=== PATIENT | male | born 1990 | race Caucasian/White ===

== ENCOUNTER → 2016-11-12 | Outpatient (CLI) | payer BC | END | disposition home or self-care (01) | LOC: MW.RT 20:47 | DX: G47.33 Obstructive sleep apnea (adult) (pediatric) (principal) | CPT/HCPCS: 95811 ==

== ENCOUNTER 2017-04-10 18:55 | Emergency (ER) | payer BC ==
--- NOTE | 2017-04-10 19:13 | EDM.PDOC ---
ED HPI GENERAL MEDICAL PROBLEM - General Chief Complaint: Fever Stated Complaint: SINUS INFECTION Time Seen by Provider: 04/10/17 19:06 Source of Information: Reports: Patient History Limitations: Reports: No Limitations - History of Present Illness INITIAL COMMENTS - FREE TEXT/NARRATIVE: HISTORY AND PHYSICAL: []26-year-old male who was seen in the clinic on Saturday and treated for a sinusitis with amoxicillin He does not seem to be improving History of Present Illness: []Patient has headache is having a cough snoring at night Review of Systems: As per history of present illness and below otherwise all systems reviewed and negative. Past medical history: As per history of present illness and as reviewed below otherwise noncontributory. Surgical history: As per history of present illness and as reviewed below otherwise noncontributory. Social history: No reported history of drug or alcohol abuse. Family history: As per history of present illness and as reviewed below otherwise noncontributory. Physical exam: Alert and oriented gentleman able to speak in full sentences HEENT: Atraumatic, normocehpalic, pupils reactive, negative for conjunctival pallor or scleral icterus, mucous membranes moist, throat with erythema, neck supple, nontender, trachea midline. Tonsils are enlarged white exudate noted to them, anterior cervical adenopathy present, light reflex is reduced to the left frontal sinus area and reduced to the right maxillary area, tympanic membranes bilaterally are dull quality slight bulging on the left Lungs: Wheezing with auscultation, breath sounds equal bilaterally, chest non tender. Heart: S1S2, regular, negative for clicks, rubs, or JVD. Abdomen: Soft, nondistended, nontender. Negative for masses or hepatossplenmegaly. Negative for costovertebral tenderness. Pelvis: Stable nontender. Genitourinary: Deferred. Rectal: Deferred Extremities: Atraumatic, negative for cords or calf pain. Neurovascular unremarkable. Neuro: Awake, alert, oriented. Cranial nerves II through XII unremarkable. Cerebellum unremarkable. Motor and sensory unremarkable throughout. Exam nonfocal. Diagnostics: [] Therapeutics: [Prednisolone syrup ] Impression: [#1 acute exudative tonsillitis #2 bilateral otitis media] #3 sinusitis Plan: Home[] Continue with current medications Medrol Dosepak as directed Definitive disposition and diagnosis as appropriate pending reevaluation and review of above. Onset: Gradual Duration: Day(s):, Getting Worse Location: Reports: Head, Face - Related Data Allergies Allergy/AdvReac Type Severity Reaction Status Date / Time No Known Allergies Allergy Verified 08/30/16 18:57 Home Meds: Home Meds Amoxicillin/Potassium Clav [Amox Tr-K Clv 875-125 mg Tab] 1 each PO BID [History] methylPREDNISolone [Medrol] 4 mg PO ASDIRECTED #1 dosepk 04/10/17 [Rx] Past Medical History HEENT History: Reports: None Cardiovascular History: Reports: High Cholesterol, Hypertension Respiratory History: Reports: None Gastrointestinal History: Reports: None Genitourinary History: Reports: None Musculoskeletal History: Reports: None Neurological History: Reports: None Psychiatric History: Reports: None Endocrine/Metabolic History: Reports: None Hematologic History: Reports: None Immunologic History: Reports: None Oncologic (Cancer) History: Reports: None Dermatologic History: Reports: None - Infectious Disease History Infectious Disease History: Reports: None Social & Family History - Family History Family Medical History: Noncontributory - Tobacco Use Smoking Status *Q: Never Smoker - Caffeine Use Caffeine Use: Reports: Coffee - Recreational Drug Use Recreational Drug Use: No ED ROS ENT - Review of Systems Review Of Systems: ROS reveals no pertinent complaints other than HPI. ED EXAM, ENT - Physical Exam Exam: See Below (See dictation) Course - Vital Signs Last Recorded V/S: Last Vital Signs Temp 37.7 C 04/10/17 19:05 Pulse 120 H 04/10/17 19:05 Resp 20 04/10/17 19:05 BP 135/87 04/10/17 19:05 Pulse Ox 97 04/10/17 19:05 - Orders/Labs/Meds Meds: Medications Discontinued Medications Generic Name Dose Route Start Last Admin Trade Name Freq PRN Reason Stop Dose Admin Ceftriaxone Sodium 1,000 mg/ 4 mls @ 4 mls/sec 04/10/17 19:17 Lidocaine HCl IM 04/10/17 19:18 ONETIME ONE Prednisolone 30 mg 04/10/17 19:16 Orapred 15 Mg/5ml Soln PO 04/10/17 19:17 ONETIME ONE Departure - Departure Time of Disposition: 19:26 Disposition: Home, Self-Care 01 Condition: Good Clinical Impression: Tonsillitis - Discharge Information Prescriptions: methylPREDNISolone [Medrol] 4 mg PO ASDIRECTED #1 dosepk Forms: ED Department Discharge Additional Instructions: The following information is given to patients seen in the emergency department who are being discharged to home. This information is to outline your options for follow-up care. We provide all patients seen in our emergency department with a follow-up referral. The need for follow-up, as well as the timing and circumstances, are variable depending upon the specifics of your emergency department visit. If you don't have a primary care physician on staff, we will provide you with a referral. We always advise you to contact your personal physician following an emergency department visit to inform them of the circumstance of the visit and for follow-up with them and/or the need for any referrals to a consulting specialist. The emergency department will also refer you to a specialist when appropriate. This referral assures that you have the opportunity for followup care with a specialist. All of these measure are taken in an effort to provide you with optimal care, which includes your followup. Under all circumstances we always encourage you to contact your private physician who remains a resource for coordinating your care. When calling for followup care, please make the office aware that this follow-up is from your recent emergency room visit. If for any reason you are refused follow-up, please contact the [facility] emergency department at and asked to speak to the emergency department charge nurse. Prescription for steroids have been electronically sent to [facility]
[2017-04-10] MEDS ORDERED: prednisoLONE Soln 15 MG/5 ML UD Cup PO ONE (19:16)
[2017-04-10] MEDS ORDERED: cefTRIAXone 1,000 MG in Lidocaine 1% 4 ML IM ONE (19:17)
[2017-04-10 20:12] VITALS: BP 145/80
== END 2017-04-10 19:45 | disposition home or self-care (01) ==
LOC: MW.ED 18:55
DX: J03.90 Acute tonsillitis, unspecified (principal); H66.93 Otitis media, unspecified, bilateral; J32.9 Chronic sinusitis, unspecified; I10 Essential (primary) hypertension; E78.00 Pure hypercholesterolemia, unspecified
CPT/HCPCS: 96372; 99282; A9270; J0696; 99283

== ENCOUNTER 2017-04-17 19:06 | Emergency (ER) | payer BC ==
--- NOTE | 2017-04-17 19:57 | EDM.PDOC ---
ED HPI GENERAL MEDICAL PROBLEM - General Chief Complaint: ENT Problem Stated Complaint: PT HAS SINUS INFECTION Time Seen by Provider: 04/17/17 19:44 - History of Present Illness INITIAL COMMENTS - FREE TEXT/NARRATIVE: HISTORY AND PHYSICAL: History of present illness: The patient is a 18-year-old male with no stated medical history who presents with persistent complaints of bilateral ear pain sore throat and fevers that have been ongoing for the last 10-14 days. He was seen in our clinic on April 08 and was placed on amoxicillin for 7 days which she completed. He wasn't feeling much better so he came and saw our ER provider on April 10 and prednisolone was added to his medication regimen. The patient says that he was feeling much improved and went back to work on Saturday and Saturday and then started feeling poorly again this morning. He had a fever today which he treated with Tylenol, last taken at 5 PM. He has been eating and drinking without nausea vomiting or diarrhea and no chest pain or shortness of breath. He has no abdominal pain and no pre-existing ENT or pulmonary problems. Review of systems: As per history of present illness and below otherwise all systems reviewed and negative. Past medical history: As per history of present illness and as reviewed below otherwise noncontributory. Surgical history: As per history of present illness and as reviewed below otherwise noncontributory. Social history: No reported history of drug or alcohol abuse. Family history: As per history of present illness and as reviewed below otherwise noncontributory. Physical exam: Gen.: Well-developed well-nourished man who is nontoxic and speaking without hoarse or muffled voice. His repeat temperature my evaluation was 100.6. He has some flushing to his face. HEENT: Atraumatic, normocephalic, pupils reactive, negative for conjunctival pallor or scleral icterus, mucous membranes moist, throat clear of exudates and there is only minimal erythema seen on the tonsils, there is some shoddy anterior cervical adenopathy without nuchal rigidity and no posterior cervical adenopathy, neck supple, nontender, trachea midline. TMs are dulled bilaterally in the right is slightly reddened . There is no sinus tenderness appreciated Lungs: Clear to auscultation, breath sounds equal bilaterally, chest nontender. Heart: S1S2, regular rate and rhythm no overt murmurs Abdomen: Soft, nondistended, nontender. NABS Skin: No overt rashes or lesions normal turgor Genitourinary: Deferred. Rectal: Deferred. Extremities: Atraumatic, negative for cords or calf pain. Neurovascular unremarkable. Neuro: Awake, alert, oriented. Cranial nerves II through XII unremarkable. Cerebellum unremarkable. Motor and sensory unremarkable throughout. Exam nonfocal. Diagnostics: [] Therapeutics: Patient was offered Motrin for his fever as he just took Tylenol less than 3 hours ago and he defers and says he will take it at home. I discussed with the patient that he likely needs a longer course of antibiotics and we will set him up to Augmentin. I recommended diligent Motrin and Tylenol use as well as hydration and follow-up in our clinic. Impression: Persistent pharyngitis and right otitis media Definitive disposition and diagnosis as appropriate pending reevaluation and review of above. Bilateral Ears/Throat Pain Score (Numeric/FACES): 7 - Related Data Allergies Allergy/AdvReac Type Severity Reaction Status Date / Time No Known Allergies Allergy Verified 04/17/17 19:17 Home Meds: Home Meds . [No Known Home Meds] 04/17/17 [History] Past Medical History HEENT History: Reports: None Cardiovascular History: Reports: High Cholesterol, Hypertension Respiratory History: Reports: None Gastrointestinal History: Reports: None Genitourinary History: Reports: None Musculoskeletal History: Reports: None Neurological History: Reports: None Psychiatric History: Reports: None Endocrine/Metabolic History: Reports: None Hematologic History: Reports: None Immunologic History: Reports: None Oncologic (Cancer) History: Reports: None Dermatologic History: Reports: None - Infectious Disease History Infectious Disease History: Reports: None Social & Family History - Family History Family Medical History: Noncontributory - Tobacco Use Smoking Status *Q: Never Smoker - Caffeine Use Caffeine Use: Reports: Coffee - Recreational Drug Use Recreational Drug Use: No ED ROS GENERAL - Review of Systems Review Of Systems: ROS reveals no pertinent complaints other than HPI. ED EXAM, GENERAL - Physical Exam Exam: See Below (See dictation) Course - Vital Signs Last Recorded V/S: Last Vital Signs Temp 36.9 C 04/17/17 19:20 Pulse 95 04/17/17 19:20 Resp 18 04/17/17 19:20 BP 133/68 04/17/17 19:20 Pulse Ox 96 04/17/17 19:20 Departure - Departure Time of Disposition: 19:56 Disposition: Home, Self-Care 01 Condition: Good Clinical Impression: Otitis media Qualifiers: Otitis media type: unspecified Chronicity: subacute Pharyngitis Qualifiers: Pharyngitis/tonsillitis etiology: unspecified etiology Qualified Code(s): J02.9 - Acute pharyngitis, unspecified - Discharge Information Forms: ED Department Discharge Additional Instructions: The following information is given to patients seen in the emergency department who are being discharged to home. This information is to outline your options for follow-up care. We provide all patients seen in our emergency department with a follow-up referral. The need for follow-up, as well as the timing and circumstances, are variable depending upon the specifics of your emergency department visit. If you don't have a primary care physician on staff, we will provide you with a referral. We always advise you to contact your personal physician following an emergency department visit to inform them of the circumstance of the visit and for follow-up with them and/or the need for any referrals to a consulting specialist. The emergency department will also refer you to a specialist when appropriate. This referral assures that you have the opportunity for followup care with a specialist. All of these measure are taken in an effort to provide you with optimal care, which includes your followup. Under all circumstances we always encourage you to contact your private physician who remains a resource for coordinating your care. When calling for followup care, please make the office aware that this follow-up is from your recent emergency room visit. If for any reason you are refused follow-up, please contact the [facility] emergency department at and ask to speak to the emergency department charge nurse. [facility] Primary care- Internal Medicine and Family [address] [address] Please call and schedule follow-up appointment in the clinic and return to the ER as needed and as discussed. Push hydration rest and take antibiotics until they're finished. Continue to use Tylenol and Motrin for fevers.
== END 2017-04-17 20:00 | disposition home or self-care (01) ==
LOC: MW.ED 19:06
CPT/HCPCS: 99283

== ENCOUNTER 2017-04-19 13:46 | Inpatient (IN) | payer BC ==
[2017-04-19] MEDS ORDERED: Ondansetron 4 MG/2 ML SDV IVPUSH STA (14:51)
[2017-04-19] MEDS ORDERED: Sodium Chloride 0.9% 1,000 ML IV STA ×2 (14:51→16:05)
[2017-04-19] MEDS ORDERED: Ketorolac 30 MG/ML SDV IVPUSH ONE (14:54)
[2017-04-19 15:47] LABS: CHLORIDE,CL 98 mmol/L (98-110); SODIUM,NA 135 mmol/L (136-146)
[2017-04-19] MEDS ORDERED: cefTRIAXone 1 GM in Premix Bag 1 BAG IV ONE (16:00)
--- NOTE | 2017-04-19 16:00 | EDM.PDOC ---
ED HPI GENERAL MEDICAL PROBLEM - General Chief Complaint: Fever Stated Complaint: fever Time Seen by Provider: 04/19/17 14:48 Source of Information: Reports: Patient History Limitations: Reports: No Limitations - History of Present Illness INITIAL COMMENTS - FREE TEXT/NARRATIVE: HISTORY AND PHYSICAL: History of present illness: [26-year-old male with no significant past history now complaining of fevers and sore throat for a week. Patient states he was seen and diagnosed with sore throat over week ago. He was prescribed amoxicillin he had nausea and vomiting and was unable to keep it down. His symptoms persisted he was seen again and diagnosed with bilateral ear infections. Patient was put on Omnicef however he was unable to keep this medication down. He's had intermittent fevers since that time sometimes quite high. Patient does not have a stiff neck. Denies productive cough or abdominal pain. Patient has normal bladder habits but he does report some loose stool since being on the antibiotics. Patient has nausea and vomiting and because of this is unable to keep down fluids so he feels he is getting dehydrated. On arrival patient has fever of 38 and is tachycardic] Review of systems: As per history of present illness and below otherwise all systems reviewed and negative. Past medical history: As per history of present illness and as reviewed below otherwise noncontributory. Surgical history: As per history of present illness and as reviewed below otherwise noncontributory. Social history: No reported history of drug or alcohol abuse. Family history: As per history of present illness and as reviewed below otherwise noncontributory. Physical exam: HEENT: Atraumatic, normocephalic, pupils reactive, negative for conjunctival pallor or scleral icterus, mucous membranes moist, throat with no swelling or asymmetry but significant bilateral white exudates. Midline uvula normal voice no stridor. No palpable anterior neck mass or swelling, neck supple, nontender, trachea midline. Patient with normal-appearing TMs bilaterally. Lungs: Clear to auscultation, breath sounds equal bilaterally, chest nontender. Heart: S1S2, regular, negative for clicks, rubs, or JVD. Positive tachycardia regular rate and rhythm Abdomen: Soft, nondistended, nontender. Negative for masses or hepatosplenomegaly. Negative for costovertebral tenderness. Pelvis: Stable nontender. Genitourinary: Deferred. Rectal: Deferred. Extremities: Atraumatic, negative for cords or calf pain. Neurovascular unremarkable. Neuro: Awake, alert, oriented. Cranial nerves grossly unremarkable. Cerebellum unremarkable. Motor and sensory unremarkable throughout. Exam nonfocal. Diagnostics: [Rapid strep and throat culture pending] Therapeutics: [IV fluids /Toradol] administered. Zofran and after blood cultures and throat culture, Rocephin given. Impression: [Pharyngitis Fever Tachycardia Dehydration] Plan: [Signs and symptoms consistent with strep pharyngitis with a classic strep appearance of the bilateral tonsillar distribution. No clinical evidence of peritonsillar abscess or findings to suggest deep space neck soft tissue infection. Rapid strep and throat culture performed. Patient has a supple neck and no evidence of meningitis. He is able to swallow and his symptoms do not suggest retropharyngeal abscess. Clear lungs with no murmur and a benign abdomen. Patient is clearly clinically dehydrated secondary to vomiting associated with this illness. IV fluids administered. Will follow labs and clinical status. Blood cultures pending. Given patient's failure of outpatient therapy, significant persistent fevers of unknown cause, elevated white blood cell count with elevated lactate and findings consistent with Sirs and sepsis, will do observation admission to rule out bacteremia and follow for clinical improvement and response to treatment. Discussed with Dr. Christoph Langley hospitalist education courses sales representative who is aware of history and findings and agrees with observation admission to a telemetry bed to his service for further workup and treatment. Chest x-ray with no evidence of pneumonia Definitive disposition and diagnosis as appropriate pending reevaluation and review of above. head; throat Pain Score (Numeric/FACES): 9 - Related Data Allergies Allergy/AdvReac Type Severity Reaction Status Date / Time No Known Allergies Allergy Verified 04/17/17 19:17 Home Meds: Home Meds Cefdinir [Omnicef] 300 mg PO BID 04/19/17 [History] Past Medical History - Past Health History Medical/Surgical History: Denies Medical/Surgical History HEENT History: Reports: None Cardiovascular History: Reports: High Cholesterol, Hypertension Respiratory History: Reports: None Gastrointestinal History: Reports: None Genitourinary History: Reports: None Musculoskeletal History: Reports: None Neurological History: Reports: None Psychiatric History: Reports: None Endocrine/Metabolic History: Reports: None Hematologic History: Reports: None Immunologic History: Reports: None Oncologic (Cancer) History: Reports: None Dermatologic History: Reports: None - Infectious Disease History Infectious Disease History: Reports: None Social & Family History - Family History Family Medical History: Noncontributory - Tobacco Use Smoking Status *Q: Never Smoker - Caffeine Use Caffeine Use: Reports: Coffee - Recreational Drug Use Recreational Drug Use: No ED ROS GENERAL - Review of Systems Review Of Systems: See Below (History of present illness) ED EXAM, GENERAL - Physical Exam Exam: See Below (History of present illness) Course - Vital Signs Last Recorded V/S: Last Vital Signs Temp 36.7 C 04/19/17 16:12 Pulse 94 04/19/17 16:12 Resp 18 04/19/17 16:12 BP 144/66 H 04/19/17 16:12 Pulse Ox 93 L 04/19/17 16:12 - Orders/Labs/Meds Orders: Active Orders 24 hr Category Date Time Status Admission Status [Patient Status] [ADT] Stat ADT 04/19/17 17:08 Ordered Chest 2V [CR] Stat Exams 04/19/17 16:39 Ordered CULTURE BLOOD [BC] Stat Lab 04/19/17 15:04 Received CULTURE BLOOD [BC] Stat Lab 04/19/17 15:14 Received CULTURE STREP A CONFIRMATION [RM] Stat Lab 04/19/17 15:51 Results CULTURE THROAT [RM] Stat Lab 04/19/17 15:51 Received STREP SCRN A RAPID W CULT CONF [RM] Stat Lab 04/19/17 15:51 Results Blood Culture x2 Reflex Set [OM.PC] Stat Oth 04/19/17 14:51 Ordered Labs: Laboratory Tests 04/19/17 04/19/17 04/19/17 Range/Units 15:04 15:04 15:04 WBC 16.71 H (4.0-11.0) K/uL RBC 5.33 (4.50-5.90) M/uL Hgb 15.4 (13.0-17.0) g/dL Hct 46.2 (38.0-50.0) % MCV 86.7 (80.0-98.0) fL MCH 28.9 (27.0-32.0) pg MCHC 33.3 (31.0-37.0) g/dL RDW Std Deviation 43.5 (28.0-62.0) fl RDW Coeff of Benedict 14 (11.0-15.0) % Plt Count 205 (150-400) K/uL MPV 9.60 (7.40-12.00) fL Add Manual Diff YES Neutrophils % (Manual) 78 (48.0-80.0) % Band Neutrophils % 8 % Lymphocytes % (Manual) 1 L (16.0-40.0) % Monocytes % (Manual) 13 (0.0-15.0) % Nucleated RBC % 0.0 /100WBC Absolute Seg Neuts 13.0 Band Neutrophils # 1.3 Lymphocytes # (Manual) 0.2 Monocytes # (Manual) 2.2 Nucleated RBCs # 0 K/uL Lactate 2.2 H (0.20-2.00) mmol/L Sodium 135 L (136-146) mmol/L Potassium 4.2 (3.5-5.1) mmol/L Chloride 98 (98-110) mmol/L Carbon Dioxide 25 (21-31) mmol/L BUN 14 (6.0-23.0) mg/dL Creatinine 1.0 (0.6-1.5) mg/dL Est Cr Clr Drug Dosing TNP Estimated GFR (MDRD) > 60.0 ml/min Glucose 115 H (60-110) mg/dL Calcium 9.7 (8.8-10.8) mg/dL Total Bilirubin 1.0 (0.1-1.5) mg/dL AST 29 (5-40) IU/L ALT 59 H (8-54) IU/L Alkaline Phosphatase 95 (40-150) Total Protein 8.7 H (6.0-8.0) g/dL Albumin 4.2 (3.5-5.0) g/dL Globulin 4.5 H (2.0-3.5) g/dL Albumin/Globulin Ratio 0.9 L (1.3-2.8) Urine Color Urine Appearance Urine pH (5.0-8.0) Ur Specific [place] (1.001-1.035) Urine Protein (NEGATIVE) mg/dL Urine Glucose (UA) (NEGATIVE) mg/dL Urine Ketones (NEGATIVE) mg/dL Urine Occult Blood (NEGATIVE) Urine Nitrite (NEGATIVE) Urine Bilirubin (NEGATIVE) Urine Urobilinogen (<2.0) EU/dL Ur Leukocyte Esterase (NEGATIVE) Urine RBC (0-2/HPF) Urine WBC (0-5/HPF) Ur Epithelial Cells (NONE-FEW) Urine Bacteria (NEGATIVE) 04/19/17 Range/Units 15:55 WBC (4.0-11.0) K/uL RBC (4.50-5.90) M/uL Hgb (13.0-17.0) g/dL Hct (38.0-50.0) % MCV (80.0-98.0) fL MCH (27.0-32.0) pg MCHC (31.0-37.0) g/dL RDW Std Deviation (28.0-62.0) fl RDW Coeff of [place] (11.0-15.0) % Plt Count (150-400) K/uL MPV (7.40-12.00) fL Add Manual Diff Neutrophils % (Manual) (48.0-80.0) % Band Neutrophils % % Lymphocytes % (Manual) (16.0-40.0) % Monocytes % (Manual) (0.0-15.0) % Nucleated RBC % /100WBC Absolute Seg Neuts Band Neutrophils # Lymphocytes # (Manual) Monocytes # (Manual) Nucleated RBCs # K/uL Lactate (0.20-2.00) mmol/L Sodium (136-146) mmol/L Potassium (3.5-5.1) mmol/L Chloride (98-110) mmol/L Carbon Dioxide (21-31) mmol/L BUN (6.0-23.0) mg/dL Creatinine (0.6-1.5) mg/dL Est Cr Clr Drug Dosing Estimated GFR (MDRD) ml/min Glucose (60-110) mg/dL Calcium (8.8-10.8) mg/dL Total Bilirubin (0.1-1.5) mg/dL AST (5-40) IU/L ALT (8-54) IU/L Alkaline Phosphatase (40-150) Total Protein (6.0-8.0) g/dL Albumin (3.5-5.0) g/dL Globulin (2.0-3.5) g/dL Albumin/Globulin Ratio (1.3-2.8) Urine Color YELLOW Urine Appearance CLEAR Urine pH 8.0 (5.0-8.0) Ur Specific [place] 1.015 (1.001-1.035) Urine Protein 30 (NEGATIVE) mg/dL Urine Glucose (UA) NEGATIVE (NEGATIVE) mg/dL Urine Ketones 15 H (NEGATIVE) mg/dL Urine Occult Blood NEGATIVE (NEGATIVE) Urine Nitrite NEGATIVE (NEGATIVE) Urine Bilirubin NEGATIVE (NEGATIVE) Urine Urobilinogen 0.2 (<2.0) EU/dL Ur Leukocyte Esterase NEGATIVE (NEGATIVE) Urine RBC 0-2 (0-2/HPF) Urine WBC 0-2 (0-5/HPF) Ur Epithelial Cells FEW (NONE-FEW) Urine Bacteria FEW (NEGATIVE) Meds: Medications Discontinued Medications Generic Name Dose Route Start Last Admin Trade Name Freq PRN Reason Stop Dose Admin Sodium Chloride 1,000 mls @ 999 mls/hr 04/19/17 14:51 04/19/17 15:10 Normal Saline IV 04/19/17 15:51 999 mls/hr NOW STA Administration Ceftriaxone Sodium/Dextrose 1 50 mls @ 100 mls/hr 04/19/17 16:00 04/19/17 16: 32 gm/ Premix IV 04/19/17 16:29 100 mls/hr ONETIME ONE Administration Sodium Chloride 1,000 mls @ 999 mls/hr 04/19/17 16:05 04/19/17 16:05 Normal Saline IV 04/19/17 17:05 999 mls/hr NOW STA Administration Ketorolac Tromethamine 30 mg 04/19/17 14:54 04/19/17 15:13 Toradol IVPUSH 04/19/17 14:55 30 mg ONETIME ONE Administration Ondansetron HCl 4 mg 04/19/17 14:51 04/19/17 15:12 Zofran IVPUSH 04/19/17 14:52 4 mg NOW STA Administration Departure - Departure Time of Disposition: 17:12 Disposition: Refer to Observation Condition: Fair Clinical Impression: Fever, Tachycardia, SIRS (systemic inflammatory response syndrome), Sepsis, Dehydration, Intractable vomiting - Discharge Information - My Orders Last 24 Hours: My Active Orders 04/19/17 14:51 Blood Culture x2 Reflex Set [OM.PC] Stat 04/19/17 15:04 CULTURE BLOOD [BC] Stat 04/19/17 15:14 CULTURE BLOOD [BC] Stat 04/19/17 15:51 CULTURE STREP A CONFIRMATION [RM] Stat CULTURE THROAT [RM] Stat STREP SCRN A RAPID W CULT CONF [RM] Stat 04/19/17 16:39 Chest 2V [CR] Stat 04/19/17 17:08 Admission Status [Patient Status] [ADT] Stat - Assessment/Plan Last 24 Hours: My Active Orders 04/19/17 14:51 Blood Culture x2 Reflex Set [OM.PC] Stat 04/19/17 15:04 CULTURE BLOOD [BC] Stat 04/19/17 15:14 CULTURE BLOOD [BC] Stat 04/19/17 15:51 CULTURE STREP A CONFIRMATION [RM] Stat CULTURE THROAT [RM] Stat STREP SCRN A RAPID W CULT CONF [RM] Stat 04/19/17 16:39 Chest 2V [CR] Stat 04/19/17 17:08 Admission Status [Patient Status] [ADT] Stat
[2017-04-19] MEDS ORDERED: Morphine 10 MG/ML Syringe IVPUSH PRN (17:31)
--- NOTE | 2017-04-19 17:31 | PCM.HP ---
H&P History of Present Illness - General Date of Service: 04/19/17 Admit Problem/Dx: Admission Diagnosis/Problem Admission Diagnosis/Problem Sepsis Source of Information: Patient, Family - History of Present Illness Initial Comments - Free Text/Narative: 26 yo male with two week history of fever, chills,nonproductive cough, n/v, and sorethroat. He does not have abdominal pain. He was evaluated in the clinic where rapid strep was negative. He was treated with amoxicillin where he did not tolerate it. He was vomiting the medicine. He did not have hives or anaphylactic reaction. He was then put on Augmentin and steroids for swelling of his throat which did not help. He was then changed omnicef which gave him diarrhea. He was unable to keep anything down. He has decreased appetite. He did not travel anywhere. He does not smoke, socially drinks ETOH, does not use recreational drugs. [place] gases such hydrogen sulfide. He does not wear a mask or respirator. He is monogomous with . No history of STI. In the ED he had fever 102.2, tachycardia , tachypneic. Blood cultures drawn, rocephin along with IVF given. His lactate elevated 2.5. WBC 17. His cxr negative for infiltrates. head; throat Pain Score (Numeric/FACES): 9 - Related Data Allergies/Adverse Reactions: Allergies Allergy/AdvReac Type Severity Reaction Status Date / Time No Known Allergies Allergy Verified 04/17/17 19:17 Home Medications: Home Meds Cefdinir [Omnicef] 300 mg PO BID 04/19/17 [History] Past Medical History - Past Health History Medical/Surgical History: Denies Medical/Surgical History HEENT History: Reports: None Cardiovascular History: Reports: High Cholesterol, Hypertension Respiratory History: Reports: None Gastrointestinal History: Reports: None Genitourinary History: Reports: None Musculoskeletal History: Reports: None Neurological History: Reports: None Psychiatric History: Reports: None Endocrine/Metabolic History: Reports: None Hematologic History: Reports: None Immunologic History: Reports: None Oncologic (Cancer) History: Reports: None Dermatologic History: Reports: None - Infectious Disease History Infectious Disease History: Reports: None Social & Family History - Family History Family Medical History: Noncontributory - Tobacco Use Smoking Status *Q: Never Smoker - Caffeine Use Caffeine Use: Reports: Coffee - Recreational Drug Use Recreational Drug Use: No H&P Review of Systems - Review of Systems: Review Of Systems: See Below General: Reports: Fever, Chills, Malaise, Weakness, Fatigue, Decreased Appetite HEENT: Reports: No Symptoms Pulmonary: Reports: Cough. Denies: Shortness of Breath, Wheezing, Pleuritic Chest Pain, Sputum Cardiovascular: Reports: No Symptoms Gastrointestinal: Reports: Anorexia, Diarrhea, Nausea, Vomiting. Denies: Abdominal Pain, Black Stool, Bloody Stool, Constipation, Difficulty Swallowing, Hematemesis, Stool Incontinence Genitourinary: Reports: No Symptoms Musculoskeletal: Reports: No Symptoms Skin: Reports: No Symptoms Psychiatric: Reports: No Symptoms Neurological: Reports: No Symptoms Hematologic/Lymphatic: Reports: No Symptoms Exam - Exam Exam: See Below - Vital Signs Vital Signs: Last Vital Signs Temp 98.1 F 04/19/17 16:12 Pulse 94 04/19/17 16:12 Resp 18 04/19/17 16:12 BP 144/66 H 04/19/17 16:12 Pulse Ox 93 L 04/19/17 16:12 Weight: 115.7 kg - Exam General: Alert, Oriented HEENT: Conjunctiva Clear, EOMI, Other (erythematous pharynx, UVLA midline, no enlarged tonsils. ) Neck: Supple, Trachea Midline Lungs: Clear to Auscultation, Normal Respiratory Effort Cardiovascular: Tachycardia GI/Abdominal Exam: Normal Bowel Sounds, Soft Extremities: Normal Inspection, Normal Range of Motion Skin: Warm, Dry, Intact Neurological: Cranial Nerves Intact Neuro Extensive - Mental Status: Alert, Oriented x3 Psychiatric: Alert, Normal Affect, Normal Mood - Patient Data Lab Results Last 24 hrs: Laboratory Results - last 24 hr 04/19/17 04/19/17 04/19/17 Range/Units 15:04 15:04 15:04 WBC 16.71 H (4.0-11.0) K/uL RBC 5.33 (4.50-5.90) M/uL Hgb 15.4 (13.0-17.0) g/dL Hct 46.2 (38.0-50.0) % MCV 86.7 (80.0-98.0) fL MCH 28.9 (27.0-32.0) pg MCHC 33.3 (31.0-37.0) g/dL RDW Std Deviation 43.5 (28.0-62.0) fl RDW Coeff of [place] 14 (11.0-15.0) % Plt Count 205 (150-400) K/uL MPV 9.60 (7.40-12.00) fL Add Manual Diff YES Neutrophils % (Manual) 78 (48.0-80.0) % Band Neutrophils % 8 % Lymphocytes % (Manual) 1 L (16.0-40.0) % Monocytes % (Manual) 13 (0.0-15.0) % Nucleated RBC % 0.0 /100WBC Absolute Seg Neuts 13.0 Band Neutrophils # 1.3 Lymphocytes # (Manual) 0.2 Monocytes # (Manual) 2.2 Nucleated RBCs # 0 K/uL Lactate 2.2 H (0.20-2.00) mmol/L Sodium 135 L (136-146) mmol/L Potassium 4.2 (3.5-5.1) mmol/L Chloride 98 (98-110) mmol/L Carbon Dioxide 25 (21-31) mmol/L BUN 14 (6.0-23.0) mg/dL Creatinine 1.0 (0.6-1.5) mg/dL Est Cr Clr Drug Dosing TNP Estimated GFR (MDRD) > 60.0 ml/min Glucose 115 H (60-110) mg/dL Calcium 9.7 (8.8-10.8) mg/dL Total Bilirubin 1.0 (0.1-1.5) mg/dL AST 29 (5-40) IU/L ALT 59 H (8-54) IU/L Alkaline Phosphatase 95 (40-150) Total Protein 8.7 H (6.0-8.0) g/dL Albumin 4.2 (3.5-5.0) g/dL Globulin 4.5 H (2.0-3.5) g/dL Albumin/Globulin Ratio 0.9 L (1.3-2.8) Urine Color Urine Appearance Urine pH (5.0-8.0) Ur Specific [place] (1.001-1.035) Urine Protein (NEGATIVE) mg/dL Urine Glucose (UA) (NEGATIVE) mg/dL Urine Ketones (NEGATIVE) mg/dL Urine Occult Blood (NEGATIVE) Urine Nitrite (NEGATIVE) Urine Bilirubin (NEGATIVE) Urine Urobilinogen (<2.0) EU/dL Ur Leukocyte Esterase (NEGATIVE) Urine RBC (0-2/HPF) Urine WBC (0-5/HPF) Ur Epithelial Cells (NONE-FEW) Urine Bacteria (NEGATIVE) 04/19/17 Range/Units 15:55 WBC (4.0-11.0) K/uL RBC (4.50-5.90) M/uL Hgb (13.0-17.0) g/dL Hct (38.0-50.0) % MCV (80.0-98.0) fL MCH (27.0-32.0) pg MCHC (31.0-37.0) g/dL RDW Std Deviation (28.0-62.0) fl RDW Coeff of [place] (11.0-15.0) % Plt Count (150-400) K/uL MPV (7.40-12.00) fL Add Manual Diff Neutrophils % (Manual) (48.0-80.0) % Band Neutrophils % % Lymphocytes % (Manual) (16.0-40.0) % Monocytes % (Manual) (0.0-15.0) % Nucleated RBC % /100WBC Absolute Seg Neuts Band Neutrophils # Lymphocytes # (Manual) Monocytes # (Manual) Nucleated RBCs # K/uL Lactate (0.20-2.00) mmol/L Sodium (136-146) mmol/L Potassium (3.5-5.1) mmol/L Chloride (98-110) mmol/L Carbon Dioxide (21-31) mmol/L BUN (6.0-23.0) mg/dL Creatinine (0.6-1.5) mg/dL Est Cr Clr Drug Dosing Estimated GFR (MDRD) ml/min Glucose (60-110) mg/dL Calcium (8.8-10.8) mg/dL Total Bilirubin (0.1-1.5) mg/dL AST (5-40) IU/L ALT (8-54) IU/L Alkaline Phosphatase (40-150) Total Protein (6.0-8.0) g/dL Albumin (3.5-5.0) g/dL Globulin (2.0-3.5) g/dL Albumin/Globulin Ratio (1.3-2.8) Urine Color YELLOW Urine Appearance CLEAR Urine pH 8.0 (5.0-8.0) Ur Specific [place] 1.015 (1.001-1.035) Urine Protein 30 (NEGATIVE) mg/dL Urine Glucose (UA) NEGATIVE (NEGATIVE) mg/dL Urine Ketones 15 H (NEGATIVE) mg/dL Urine Occult Blood NEGATIVE (NEGATIVE) Urine Nitrite NEGATIVE (NEGATIVE) Urine Bilirubin NEGATIVE (NEGATIVE) Urine Urobilinogen 0.2 (<2.0) EU/dL Ur Leukocyte Esterase NEGATIVE (NEGATIVE) Urine RBC 0-2 (0-2/HPF) Urine WBC 0-2 (0-5/HPF) Ur Epithelial Cells FEW (NONE-FEW) Urine Bacteria FEW (NEGATIVE) Result Diagrams: 04/19/17 15:04 04/19/17 15:04 Thomas Results Last 24 hrs: Microbiology 04/19/17 15:51 Group A Streptococcus Rapid Screen - Final Throat NEGATIVE STREP A SCREEN *Q Meaningful Use (ADM) - VTE *Q VTE Criteria *Q: - Stroke *Q Stroke Criteria *Q: - AMI *Q AMI Criteria *Q: Problem List Initiated/Reviewed/Updated: Yes Orders Last 24hrs: Active Orders 24 hr Category Date Time Status Admission Status [Patient Status] [ADT] Stat ADT 04/19/17 17:08 Active Chest 2V [CR] Stat Exams 04/19/17 16:39 Taken CULTURE BLOOD [BC] Stat Lab 04/19/17 15:04 Received CULTURE BLOOD [BC] Stat Lab 04/19/17 15:14 Received CULTURE STREP A CONFIRMATION [RM] Stat Lab 04/19/17 15:51 Results CULTURE THROAT [RM] Stat Lab 04/19/17 15:51 Received STREP SCRN A RAPID W CULT CONF [RM] Stat Lab 04/19/17 15:51 Results Blood Culture x2 Reflex Set [OM.PC] Stat Oth 04/19/17 14:51 Ordered Assessment/Plan Comment:: 26 yo male admitted for sepsis Admit to ICU. telemetry NPO except meds IVF at 150 ml/hr IV zosyn trend lactate in 6 hours Abd/pelvis CT, neck CT stool c-diff and culture HIV, mono screen GI prohylaxis: protonix po DVT prohylaxsis: lovenox s/c
[2017-04-19] MEDS ORDERED: Ondansetron 4 MG/2 ML SDV IVPUSH PRN (17:56)
[2017-04-19] MEDS ORDERED: Iopamidol 755 MG/ML 500 ML Multipack Bottle IVPUSH STA (18:29)
[2017-04-19] MEDS: Sodium Chloride 0.9% 1,000 ML IV SCH (18:49)
[2017-04-19] MEDS: Enoxaparin 40 MG/0.4 ML Syringe SUBCUT SCH (18:50)
[2017-04-19] MEDS: Pantoprazole 40 MG Tab.CR PO SCH (18:50)
[2017-04-19] MEDS: Piperacillin/Tazobactam 4.5 GM in Sodium Chloride 0.9% 100 ML IV SCH ×2 (18:50→23:53)
--- NOTE | 2017-04-19 19:59 | CR ---
EXAM DATE: 04/19/17 PATIENT'S AGE: 26 Patient: CHELSEY ALVAREZ Facility: [place], [place] Site . Site : 1990 Study: XRay Chest [id number]/28/2017 5:12:27 PM Ordering Physician: Prince Friedman Final Report: INDICATION: Fever and cough TECHNIQUE: Chest 2 views. COMPARISON: None FINDINGS: Cardiovascular and mediastinum: Heart size and vasculature are normal in caliber and appearance. Mediastinum is within normal limits. Lungs and pleural spaces: Lungs are clear. No sign of infiltrate. 5 millimeter probable calcified granuloma left lower lobe. No sign of pleural effusion. No pneumothorax. Bones and soft tissues: No significant findings. IMPRESSION: No evidence for pneumonia. 5 millimeter probable calcified granuloma left lower lobe. Dictated by Jeferson Doss MD @ 04/19/2017 5:51:08 PM Dictated by: Jeferson Doss MD @ 04/19/2017 17:51:15 (Electronic Signature) Report Signed by Proxy. ISAIAS
--- NOTE | 2017-04-19 20:00 | CT ---
EXAM DATE: 04/19/17 PATIENT'S AGE: 26 Patient: CHELSEY ALVAREZ Facility: [place], [place] Site . Site : 1990 Study: CT Abdomen/Pelvis [id number]/28/2017 6:46:40 PM Ordering Physician: Prince Friedman Final Report: INDICATION: Abdominal pain TECHNIQUE: CT abdomen and pelvis acquired with i.v. contrast. Coronal and sagittal reformats were obtained. Type and amount of IV contrast not provided. COMPARISON: None FINDINGS: Lower chest: Calcified granuloma in the left lower lobe, axial series 201, image 7. Imaged lung bases otherwise clear. No free air. Liver: Relative low attenuation to the liver in comparison to the spleen, compatible with fatty infiltration. No focal liver lesion. Spleen: Normal size of spleen. Scattered splenic calcifications, compatible with old granulomatous disease. Pancreas: Unremarkable. Gallbladder and bile ducts: Unremarkable. Kidneys: Unremarkable. No kidney or ureteral stones and no hydronephrosis seen. Adrenal glands: Unremarkable. GI tract: Unremarkable. The appendix is normal in appearance and size. Vascular: Unremarkable. Lymph nodes: Unremarkable. Miscellaneous: Unremarkable. No pneumoperitoneum is seen. No significant ascites is noted. Pelvic Organs: Unremarkable. Bones: Unremarkable for age. Fat containing left inguinal hernia defect, visualized on coronal reformat series 203, image 39. IMPRESSION: 1. Fat containing left inguinal hernia defect. 2. Calcified granuloma in the left lower lobe with splenic calcifications, compatible with prior granulomatous infection. 3. Normal appendix. 4. Fatty infiltration of liver. Dictated by Jewel Jiménez MD @ 04/19/2017 7:00:47 PM Dictated by: Jewel Jiménez MD @ 04/19/2017 19:00:56 (Electronic Signature) Report Signed by Proxy. [email or web address]
--- NOTE | 2017-04-19 20:01 | CT ---
EXAM DATE: 04/19/17 PATIENT'S AGE: 26 Patient: CHELSEY ALVAREZ Facility: [place], [place] Site . Site : 1990 Study: CT ST Neck [id number] 6:51:54 PM Ordering Physician: Korin Hawthorne Final Report: INDICATION: sore throat TECHNIQUE: Helical scans obtained through the neck after administration of 100 cc of Isovue 370 intravenously. COMPARISON: None. FINDINGS: 1. There are metal dental fillings causing streak artifact in the region of the oral pharynx. The tonsils and adenoids are enlarged and slightly lower density suggesting acute inflammation. No peritonsillar abscess. Retropharyngeal soft tissues appear within normal limits. The airway is not compromised. 2. There are mildly prominent cervical lymph nodes bilaterally consistent with reactive lymph nodes. 3. The parotid and submandibular glands are normal. Thyroid gland is homogeneous and normal size. 4. The larynx is within normal limits. 5. 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 6. The visualized paranasal sinuses and mastoid air cells are clear except for trace fluid in a few of the left inferior mastoid air cells. 7. No bony abnormalities are seen involving the skullbase or cervical spine. IMPRESSION: Prominence and mild lower density changes in the adenoids and tonsils suggesting acute inflammation without a discrete abscess. Reactive cervical lymph nodes bilaterally. Dictated by George Aguirre MD @ 04/19/2017 7:07:31 PM Dictated by: George Aguirre MD @ 04/19/2017 19:07:37 (Electronic Signature) Report Signed by Proxy. ISAIAS
[2017-04-20] MEDS: Acetaminophen 325 MG Tab PO PRN ×3 (01:02→20:08)
[2017-04-20] MEDS: Sodium Chloride 0.9% 1,000 ML IV SCH ×3 (03:39→20:03)
[2017-04-20 04:55] LABS: CHLORIDE,CL 108 mmol/L (98-110); SODIUM,NA 140 mmol/L (136-146)
[2017-04-20] MEDS: Piperacillin/Tazobactam 4.5 GM in Sodium Chloride 0.9% 100 ML IV SCH ×4 (06:30→23:59)
[2017-04-20] MEDS: Pantoprazole 40 MG Tab.CR PO SCH (08:48)
[2017-04-20] MEDS: Enoxaparin 40 MG/0.4 ML Syringe SUBCUT SCH (08:48)
--- NOTE | 2017-04-20 10:37 | PCM.PN ---
- Review of Systems Systems Review Comment:: abdoinal pain resolved. denies any throat or ear discomfort. - Patient Data Vitals - Most Recent: Last Vital Signs Temp 36.4 C 04/20/17 08:00 Pulse 83 04/19/17 18:45 Resp 15 04/20/17 08:00 BP 122/71 04/20/17 08:00 Pulse Ox 93 L 04/20/17 08:00 Weight - Most Recent: 115.3 kg I&O - Last 24 Hours: Intake & Output 04/19/17 04/20/17 04/20/17 22:59 06:59 14:59 Intake Total 50 1200 100 Output Total 800 Balance 50 400 100 Lab Results Last 24 Hours: Laboratory Results - last 24 hr 04/19/17 04/20/17 04/20/17 Range/Units 20:45 04:08 04:08 WBC 13.71 H (4.0-11.0) K/uL RBC 4.38 L (4.50-5.90) M/uL Hgb 12.5 L (13.0-17.0) g/dL Hct 38.5 (38.0-50.0) % MCV 87.9 (80.0-98.0) fL MCH 28.5 (27.0-32.0) pg MCHC 32.5 (31.0-37.0) g/dL RDW Std Deviation 44.8 (28.0-62.0) fl RDW Coeff of Benedict 14 (11.0-15.0) % Plt Count 169 (150-400) K/uL MPV 10.00 (7.40-12.00) fL Nucleated RBC % 0.0 /100WBC Nucleated RBCs # 0 K/uL Lactate 1.1 (0.20-2.00) mmol/L Sodium 140 (136-146) mmol/L Potassium 3.9 (3.5-5.1) mmol/L Chloride 108 (98-110) mmol/L Carbon Dioxide 25 (21-31) mmol/L BUN 13 (6.0-23.0) mg/dL Creatinine 0.8 (0.6-1.5) mg/dL Est Cr Clr Drug Dosing 146.42 mL/min Estimated GFR (MDRD) > 60.0 ml/min Glucose 107 (60-110) mg/dL Calcium 8.3 L (8.8-10.8) mg/dL Phosphorus 3.3 (2.4-4.7) mg/dL Magnesium 1.8 (1.5-2.3) mEq/L Med Orders - Current: Current Medications Acetaminophen (Tylenol) 650 mg PO Q4H PRN PRN Reason: Fever Last Admin: 04/20/17 01:02 Dose: 650 mg Enoxaparin Sodium (Lovenox) 40 mg SUBCUT DAILY [facility] Last Admin: 04/20/17 08:48 Dose: 40 mg Piperacillin Sod/Tazobactam (Sod 4.5 gm/ Sodium Chloride) 100 mls @ 100 mls/hr IV Q6H [facility] Last Admin: 04/20/17 06:30 Dose: 100 mls/hr Sodium Chloride (Normal Saline) 1,000 mls @ 150 mls/hr IV ASDIRECTED [facility] Last Admin: 04/20/17 03:39 Dose: 150 mls/hr Morphine Sulfate (Morphine) 2 mg IVPUSH Q2H PRN PRN Reason: Pain (severe 7-10) Stop: 04/20/17 17:49 Ondansetron HCl (Zofran) 4 mg IVPUSH Q4H PRN PRN Reason: Nausea/Vomiting Pantoprazole Sodium (Protonix) 40 mg PO DAILY [facility] Last Admin: 04/20/17 08:48 Dose: 40 mg Discontinued Medications Sodium Chloride (Normal Saline) 1,000 mls @ 999 mls/hr IV NOW STA Stop: 04/19/17 15:51 Last Admin: 04/19/17 15:10 Dose: 999 mls/hr Ceftriaxone Sodium/Dextrose 1 (gm/ Premix) 50 mls @ 100 mls/hr IV ONETIME ONE Stop: 04/19/17 16:29 Last Admin: 04/19/17 16:32 Dose: 100 mls/hr Sodium Chloride (Normal Saline) 1,000 mls @ 999 mls/hr IV NOW STA Stop: 04/19/17 17:05 Last Admin: 04/19/17 16:05 Dose: 999 mls/hr Iopamidol (Isovue Multipack-370 (76%)) 100 ml IVPUSH ONETIME STA Stop: 04/19/17 18:30 Last Admin: 04/19/17 18:30 Dose: 100 ml Ketorolac Tromethamine (Toradol) 30 mg IVPUSH ONETIME ONE Stop: 04/19/17 14:55 Last Admin: 04/19/17 15:13 Dose: 30 mg Ondansetron HCl (Zofran) 4 mg IVPUSH NOW STA Stop: 04/19/17 14:52 Last Admin: 04/19/17 15:12 Dose: 4 mg - Exam HEENT: Mucous Membr. Moist/[place], Other (tympanic membraines clear) Lungs: Clear to Auscultation, Normal Respiratory Effort Cardiovascular: Regular Rate, Regular Rhythm GI/Abdominal Exam: Normal Bowel Sounds, Soft, Non-Tender, No Organomegaly, No Distention, No Abnormal Bruit, No Mass, Pelvis Stable Extremities: Normal Inspection, No Pedal Edema Skin: Warm, Dry, Intact. No: Rash Neurological: No New Focal Deficit, Normal Gait, Normal Speech, Normal Tone, Strength Equal Bilateral, Cranial Nerves Intact - Problem List Review Problem List Initiated/Reviewed/Updated: Yes - My Orders Last 24 Hours: My Active Orders 04/20/17 08:28 Transfer Patient (Change bed) [ADT] Routine 04/20/17 Breakfast Clear Liquid Diet [DIET] 04/20/17 Lunch Regular Diet [DIET] Regular Diet [DIET] - Plan Plan:: 26 yo male admitted for fever. patient has been treated for pharyngitis/ sinsusis/otitis media as outpatient. He denies any upper respiratory tract symptoms currently. Abdominal pain could have been GI upset from antibiotics. Patient on zosyn empirically as appeared septic on admission. Will deescalate abx pending cultures. Abd/pelvis CT, negative, neck CT reports inflammation but no abscess. HIV mono and rapid strep test negative.
[2017-04-20] MEDS: Benzocaine/Cetylpyridinium/Menthol Lozenge MUCMEM PRN (20:38)
[2017-04-21] MEDS: Sodium Chloride 0.9% 1,000 ML IV SCH ×2 (03:55→11:27)
[2017-04-21] MEDS: Benzocaine/Cetylpyridinium/Menthol Lozenge MUCMEM PRN ×2 (04:01→09:05)
[2017-04-21 05:17] LABS: CHLORIDE,CL 104 mmol/L (98-110); SODIUM,NA 136 mmol/L (136-146)
[2017-04-21] MEDS: Piperacillin/Tazobactam 4.5 GM in Sodium Chloride 0.9% 100 ML IV SCH ×2 (05:40→11:24)
[2017-04-21 08:57] VITALS: BP 126/69
[2017-04-21] MEDS: Pantoprazole 40 MG Tab.CR PO SCH (09:04)
[2017-04-21] MEDS: Enoxaparin 40 MG/0.4 ML Syringe SUBCUT SCH (09:05)
--- NOTE | 2017-04-21 11:06 | PCM.DCSUM1 ---
Discharge Summary - Discharge Data Discharge Date: 04/21/17 Discharge Disposition: Home, Self-Care 01 Condition: Good - Patient Summary/Data Hospital Course: 26 yo male who presents with two week history of fever, sore throat, nonproductive cough. He was been to the ED on multiple occasions for this. His rapid strep test was negative but he was treated with amoxacillin which he did not tolerate, then he was placed on augmentin and steroids with minimal improvement in symptoms. He was then placed on omnicef for bilateral otitis medea which gave him diarrhea nausea and vomiting. He presented to the ED and was admitted for dehydration, fever and concern for possible sepsis. This admission he denied sinsus congestion or ear pain but mainly reported sore throat, abdominal discomfort with diarrhea. His lactate elevated 2.5. WBC 17. Rapid strep, HIV, EBV, C. Diff, UA tests was negative. His cxr was negative for infiltrates. CT scan of abdomen was unremarkable. CT scan of neck reported promenance and mild lower density changes in adenoids and tonsils suggesting acute inflammation but no abscess. He was treated with IV fluid resuscitation and Zosyn. Blood cultures were no growth to date. On third day of hospital patient was feeling like his normal self and was requesting discharge home. He was discharged home to have follow up with Michelle Carlos. - Patient Instructions Diet: Regular Diet as Tolerated Activity: As Tolerated Notify Provider of: Fever, Swelling and Redness, Nausea and/or Vomiting - Discharge Plan Prescriptions/Med Rec: Clindamycin HCl 300 mg PO Q6H #20 capsule Home Medications: Home Meds Clindamycin HCl 300 mg PO Q6H #20 capsule 04/21/17 [Rx] Patient Handouts: Pharyngitis, Clindamycin capsules, Sepsis, Adult Referrals: Michelle Carlos [employer] [Primary Care Provider] - (Please call [facility] on Saturday to schedule post-hospital follow up within 1 week. ) - Patient Data Vitals - Most Recent: Last Vital Signs Temp 36.1 C 04/21/17 08:50 Pulse 72 04/21/17 08:50 Resp 20 04/21/17 08:50 BP 126/69 04/21/17 08:50 Pulse Ox 96 04/21/17 08:50 Weight - Most Recent: 115.3 kg I&O - Last 24 hours: Intake & Output 04/20/17 04/21/17 04/21/17 22:59 06:59 14:59 Intake Total 100 2100 Output Total 300 1235 Balance -200 865 Lab Results - Last 24 hrs: Laboratory Results - last 24 hr 04/21/17 04/21/17 Range/Units 04:40 04:40 WBC 8.67 (4.0-11.0) K/uL RBC 3.94 L (4.50-5.90) M/uL Hgb 11.0 L (13.0-17.0) g/dL Hct 34.7 L (38.0-50.0) % MCV 88.1 (80.0-98.0) fL MCH 27.9 (27.0-32.0) pg MCHC 31.7 (31.0-37.0) g/dL RDW Std Deviation 45.7 (28.0-62.0) fl RDW Coeff of Benedict 14 (11.0-15.0) % Plt Count 157 (150-400) K/uL MPV 9.70 (7.40-12.00) fL Neut % (Auto) 63.1 (48.0-80.0) % Lymph % (Auto) 22.7 (16.0-40.0) % [place] % (Auto) 13.7 (0.0-15.0) % Eos % (Auto) 0.3 (0.0-7.0) % Baso % (Auto) 0.2 (0.0-1.5) % Neut # (Auto) 5.5 (1.4-5.7) K/uL Lymph # (Auto) 2.0 (0.6-2.4) K/uL [place] # (Auto) 1.2 H (0.0-0.8) K/uL Eos # (Auto) 0.0 (0.0-0.7) K/uL Baso # (Auto) 0.0 (0.0-0.1) K/uL Nucleated RBC % 0.0 /100WBC Nucleated RBCs # 0 K/uL Sodium 136 (136-146) mmol/L Potassium 4.1 (3.5-5.1) mmol/L Chloride 104 (98-110) mmol/L Carbon Dioxide 26 (21-31) mmol/L BUN 6 (6.0-23.0) mg/dL Creatinine 0.8 (0.6-1.5) mg/dL Est Cr Clr Drug Dosing 145.82 mL/min Estimated GFR (MDRD) > 60.0 ml/min Glucose 97 (60-110) mg/dL Calcium 8.3 L (8.8-10.8) mg/dL COY Results - Last 24 hrs: Microbiology 04/20/17 01:00 Aerobic Blood Culture - Preliminary Blood - Venous - Lab Draw NO GROWTH AFTER 1 DAY Anaerobic Blood Culture - Preliminary NO GROWTH AFTER 1 DAY 04/20/17 00:55 Aerobic Blood Culture - Preliminary Blood - Venous NO GROWTH AFTER 1 DAY Anaerobic Blood Culture - Preliminary NO GROWTH AFTER 1 DAY 04/20/17 10:25 Clostridium difficile Toxin A&B (M) - Final Stool / Feces Negative for C.Diff Toxin/AG 04/20/17 10:25 Campylobacter Antigen Assay - Final Stool / Feces NEGATIVE CAMPYLOBACTER AG 04/20/17 10:25 Stool for WBCs - Final Stool / Feces NEGATIVE FOR WBC'S Med Orders - Current: Current Medications Acetaminophen (Tylenol) 650 mg PO Q4H PRN PRN Reason: Fever Last Admin: 04/20/17 20:08 Dose: 650 mg Benzocaine/Menthol (Cepacol Sore Throat) 1 lozenge MUCMEM Q4H PRN PRN Reason: Sore Throat Last Admin: 04/21/17 09:05 Dose: 1 lozenge Enoxaparin Sodium (Lovenox) 40 mg SUBCUT DAILY [facility] Last Admin: 04/21/17 09:05 Dose: 40 mg Piperacillin Sod/Tazobactam (Sod 4.5 gm/ Sodium Chloride) 100 mls @ 100 mls/hr IV Q6H [facility] Last Admin: 04/21/17 05:40 Dose: 100 mls/hr Sodium Chloride (Normal Saline) 1,000 mls @ 150 mls/hr IV ASDIRECTED [facility] Last Admin: 04/21/17 03:55 Dose: 150 mls/hr Ondansetron HCl (Zofran) 4 mg IVPUSH Q4H PRN PRN Reason: Nausea/Vomiting Pantoprazole Sodium (Protonix) 40 mg PO DAILY [facility] Last Admin: 04/21/17 09:04 Dose: 40 mg Discontinued Medications Sodium Chloride (Normal Saline) 1,000 mls @ 999 mls/hr IV NOW STA Stop: 04/19/17 15:51 Last Admin: 04/19/17 15:10 Dose: 999 mls/hr Ceftriaxone Sodium/Dextrose 1 (gm/ Premix) 50 mls @ 100 mls/hr IV ONETIME ONE Stop: 04/19/17 16:29 Last Admin: 04/19/17 16:32 Dose: 100 mls/hr Sodium Chloride (Normal Saline) 1,000 mls @ 999 mls/hr IV NOW STA Stop: 04/19/17 17:05 Last Admin: 04/19/17 16:05 Dose: 999 mls/hr Iopamidol (Isovue Multipack-370 (76%)) 100 ml IVPUSH ONETIME STA Stop: 04/19/17 18:30 Last Admin: 04/19/17 18:30 Dose: 100 ml Ketorolac Tromethamine (Toradol) 30 mg IVPUSH ONETIME ONE Stop: 04/19/17 14:55 Last Admin: 04/19/17 15:13 Dose: 30 mg Morphine Sulfate (Morphine) 2 mg IVPUSH Q2H PRN PRN Reason: Pain (severe 7-10) Stop: 04/20/17 17:49 Ondansetron HCl (Zofran) 4 mg IVPUSH NOW STA Stop: 04/19/17 14:52 Last Admin: 04/19/17 15:12 Dose: 4 mg *Q Meaningful Use (DIS) - VTE *Q VTE Criteria *Q: - Stroke *Q Stroke Criteria *Q: - AMI *Q AMI Criteria *Q:
== END 2017-04-21 13:30 | disposition home or self-care (01) | DRG 720 ==
LOC: MW.ED 13:46 → MW.MS 18:21 → OBSVTOIN 18:21 → MW.ICU 18:30 → MW.MS 04-20 15:34
PROVIDERS: ADMIT Internal Medicine; ATTEND Internal Medicine
DX: A41.9 Sepsis, unspecified organism (principal); H66.93 Otitis media, unspecified, bilateral; J02.9 Acute pharyngitis, unspecified; J32.9 Chronic sinusitis, unspecified; E86.0 Dehydration; R10.9 Unspecified abdominal pain; E78.00 Pure hypercholesterolemia, unspecified; I10 Essential (primary) hypertension; Z79.899 Other long term (current) drug therapy
CPT/HCPCS: 36415; 70491; 70491-26; 71020; 71020-26; 74177; 74177-26; 80048; 80053; 81001; 82150; 83605; 83630; 83690; 83735; 84100; 85025; 85027; 86308; 86788; 86789; 87040; 87046; 87070; 87081; 87324; 87338; 87389; 87880; 87899; 96361; 96365; 96375; 99283; 99285-25; A9270-GY; J0696; J1650; J1885; J2405; J2543; J7030; J7040; Q9967

== ENCOUNTER 2018-11-24 19:44 | Emergency (ER) | payer BC ==
--- NOTE | 2018-11-24 20:07 | EDM.PDOC ---
ED HPI GENERAL MEDICAL PROBLEM - General Chief Complaint: General Stated Complaint: COUGH, HEADACHE, CHILLS, SORE THROAT Time Seen by Provider: 11/24/18 20:03 Source of Information: Reports: Patient History Limitations: Reports: No Limitations - History of Present Illness INITIAL COMMENTS - FREE TEXT/NARRATIVE: HISTORY AND PHYSICAL: History of present illness: Patient is a 28-year-old male who presents to the emergency room today with complaints of subjective fever, sore throat and cough. He states that he has noticed these symptoms since Saturday. Patient voices concern as he states in 2017 he was hospitalized due to sepsis. He states he was not told of the source of his infection but initially started out as flulike symptoms. He states he is here as he is concerned and wants to be evaluated to make sure he is not becoming septic. He denies any chest pain, shortness of breath, headache, change in vision, syncope or near syncope. Denies any abdominal pain, nausea, vomiting, diarrhea, constipation or dysuria. He has been able to eat and drink appropriately. Denies any recent travel. Has not received the influenza vaccine this year. Review of systems: As per history of present illness and below otherwise all systems reviewed and negative. Past medical history: As per history of present illness and as reviewed below otherwise noncontributory. Surgical history: As per history of present illness and as reviewed below otherwise noncontributory. Social history: See social history for further information Family history: As per history of present illness and as reviewed below otherwise noncontributory. Physical exam: General: Well developed and well-nourished 28-year-old male. Alert and oriented. Nontoxic appearing and in no acute distress. HEENT: Atraumatic, normocephalic, pupils equal and reactive bilaterally, negative for conjunctival pallor or scleral icterus, mucous membranes moist, TMs normal bilaterally, throat clear, neck supple, nontender, trachea midline. No drooling or trismus noted. No meningeal signs. No hot potato voice noted. Lungs: Diffuse high pitched wheezing throughout all lung kelly, breath sounds equal bilaterally, chest nontender. Heart: S1S2, regular rate and rhythm without overt murmur Abdomen: Soft, nondistended, nontender. Negative for masses or hepatosplenomegaly. Negative for costovertebral tenderness. Pelvis: Stable nontender. Genitourinary: Deferred. Rectal: Deferred. Skin: Intact, warm, dry. No lesions or rashes noted. Extremities: Atraumatic, negative for cords or calf pain. Neurovascular unremarkable. Neuro: Awake, alert, oriented. Cranial nerves II through XII unremarkable. Cerebellum unremarkable. Motor and sensory unremarkable throughout. Exam nonfocal. Notes: On exam, patient does have diffuse wheezing. Will do labs and imaging today. Labs today are unremarkable. Vitals are reassuring. Physical examination/lung sounds have improved post nebulizer treatment. Chest xray shows no acute cardiopulmonary process. Will treat for bronchitis with Medrol Dosepak, azithromycin and pro-air. Supportive care measures were reviewed and discussed. Voices understanding and is agreeable to plan of care. Denies any further questions or concerns at this time. Diagnostics: CBC, CMP, strep screening, influenza, chest x-ray Therapeutics: Toradol IM, solumedrol, duoneb Prescription: Medrol dose pack, Proair, Azithromycin Impression: Bronchitis Plan: 1. Please take your medications as directed. 2. Tylenol and/or ibuprofen as needed and as directed. 3. Please follow-up with your primary the next 1-2 days. Return to the ED as needed and as discussed. Definitive disposition and diagnosis as appropriate pending reevaluation and review of above. sore throat Pain Score (Numeric/FACES): 8 - Related Data Allergies Allergy/AdvReac Type Severity Reaction Status Date / Time No Known Allergies Allergy Verified 04/17/17 19:17 Home Meds: Home Meds Clindamycin HCl 300 mg PO Q6H #20 capsule 04/21/17 [Rx] Past Medical History - Past Health History Medical/Surgical History: Denies Medical/Surgical History HEENT History: Reports: Impaired Vision Cardiovascular History: Reports: High Cholesterol, Hypertension Respiratory History: Reports: None Gastrointestinal History: Reports: None Other Gastrointestinal History: right inguinal hernia Genitourinary History: Reports: None Musculoskeletal History: Reports: Fracture Neurological History: Reports: None Psychiatric History: Reports: None Endocrine/Metabolic History: Reports: None Hematologic History: Reports: None Immunologic History: Reports: None Oncologic (Cancer) History: Reports: None Dermatologic History: Reports: None - Infectious Disease History Infectious Disease History: Reports: Chicken Pox, Influenza - Past Surgical History HEENT Surgical History: Reports: None GI Surgical History: Reports: Hernia, Inguinal Musculoskeletal Surgical History: Reports: None Social & Family History - Family History Family Medical History: Noncontributory HEENT: Reports: Impaired Vision Cardiac: Reports: High Cholesterol, Hypertension Respiratory: Reports: Asthma OBGYN: Reports: Endocrine/Metabolic: Reports: Other (See Below) Other Endocrine/Metabolic Family History: diabetes - Caffeine Use Caffeine Use: Reports: Coffee, Soda ED ROS GENERAL - Review of Systems Review Of Systems: ROS reveals no pertinent complaints other than HPI. ED EXAM, GENERAL - Physical Exam Exam: See Below (See dictation) Course - Vital Signs Last Recorded V/S: Last Vital Signs Temp 99.1 F 11/24/18 19:47 Pulse 76 11/24/18 19:47 Resp 16 11/24/18 19:47 BP 142/83 H 11/24/18 19:47 Pulse Ox 98 11/24/18 19:47 - Orders/Labs/Meds Orders: Active Orders 24 hr Category Date Time Status RT Aerosol Therapy [RC] ASDIRECTED Care 11/24/18 20:27 Active Chest 2V [CR] Stat Exams 11/24/18 20:12 Taken CULTURE STREP A CONFIRMATION [RM] Stat Lab 11/24/18 20:31 Results STREP SCRN A RAPID W CULT CONF [RM] Stat Lab 11/24/18 20:31 Results Labs: Laboratory Tests 11/24/18 11/24/18 Range/Units 20:21 20:21 WBC 8.06 (4.0-11.0) K/uL RBC 5.09 (4.50-5.90) M/uL Hgb 15.1 (13.0-17.0) g/dL Hct 43.8 (38.0-50.0) % MCV 86.1 (80.0-98.0) fL MCH 29.7 (27.0-32.0) pg MCHC 34.5 (31.0-37.0) g/dL RDW Std Deviation 41.3 (28.0-62.0) fl RDW Coeff of Benedict 13 (11.0-15.0) % Plt Count 152 (150-400) K/uL MPV 10.00 (7.40-12.00) fL Neut % (Auto) 70.8 (48.0-80.0) % Lymph % (Auto) 18.4 (16.0-40.0) % [place] % (Auto) 9.6 (0.0-15.0) % Eos % (Auto) 1.1 (0.0-7.0) % Baso % (Auto) 0.1 (0.0-1.5) % Neut # (Auto) 5.7 (1.4-5.7) K/uL Lymph # (Auto) 1.5 (0.6-2.4) K/uL [place] # (Auto) 0.8 (0.0-0.8) K/uL Eos # (Auto) 0.1 (0.0-0.7) K/uL Baso # (Auto) 0.0 (0.0-0.1) K/uL Nucleated RBC % 0.0 /100WBC Nucleated RBCs # 0 K/uL Sodium 139 (136-148) mmol/L Potassium 4.5 (3.5-5.1) mmol/L Chloride 102 (98-107) mmol/L Carbon Dioxide 28.7 (21.0-32.0) mmol/L BUN 12 (7.0-18.0) mg/dL Creatinine 0.8 (0.8-1.3) mg/dL Est Cr Clr Drug Dosing 99.88 mL/min Estimated GFR (MDRD) > 60.0 ml/min Glucose 102 (74-106) mg/dL Calcium 9.0 (8.5-10.1) mg/dL Total Bilirubin 0.6 (0.2-1.0) mg/dL AST 49 H (15-37) IU/L ALT 89 H (14-63) IU/L Alkaline Phosphatase 92 (46-116) U/L Total Protein 7.7 (6.4-8.2) g/dL Albumin 3.8 (3.4-5.0) g/dL Globulin 3.9 (2.6-4.0) g/dL Albumin/Globulin Ratio 1.0 (0.9-1.6) Meds: Medications Discontinued Medications Generic Name Dose Route Start Last Admin Trade Name Freq PRN Reason Stop Dose Admin Albuterol/Ipratropium 3 ml 11/24/18 20:27 Duoneb 3.0-0.5 Mg/3 Ml NEB 11/24/18 20:28 ONETIME ONE Ketorolac Tromethamine 60 mg 03/04/19 20:12 11/24/18 20:42 Toradol IM 11/24/18 20:13 60 mg ONETIME ONE Administration Methylprednisolone Sodium Succinate 125 mg 11/24/18 20:40 11/24/18 20:49 Solu-Medrol IM 11/24/18 20:41 125 mg ONETIME ONE Administration Departure - Departure Time of Disposition: 21:17 Disposition: Home, Self-Care 01 Clinical Impression: Bronchitis - Discharge Information Instructions: Upper Respiratory Infection, Adult, [id number] Referrals: PCP,None [Primary Care Provider] - Forms: ED Department Discharge Additional Instructions: The following information is given to patients seen in the emergency department who are being discharged to home. This information is to outline your options for follow-up care. We provide all patients seen in our emergency department with a follow-up referral. The need for follow-up, as well as the timing and circumstances, are variable depending upon the specifics of your emergency department visit. If you don't have a primary care physician on staff, we will provide you with a referral. We always advise you to contact your personal physician following an emergency department visit to inform them of the circumstance of the visit and for follow-up with them and/or the need for any referrals to a consulting specialist. The emergency department will also refer you to a specialist when appropriate. This referral assures that you have the opportunity for follow-up care with a specialist. All of these measure are taken in an effort to provide you with optimal care, which includes your follow-up. Under all circumstances we always encourage you to contact your private physician who remains a resource for coordinating your care. When calling for follow-up care, please make the office aware that this follow-up is from your recent emergency room visit. If for any reason you are refused follow-up, please contact the [facility] Emergency Department at and asked to speak to the emergency department charge nurse. [facility] [address] [place] [id number] [address] [address] 1. Please take your medications as directed. 2. Tylenol and/or ibuprofen as needed and as directed. 3. Please follow-up with your primary the next 1-2 days. Return to the ED as needed and as discussed. - My Orders Last 24 Hours: My Active Orders 11/24/18 20:12 Chest 2V [CR] Stat 11/24/18 20:27 RT Aerosol Therapy [RC] ASDIRECTED 11/24/18 20:31 CULTURE STREP A CONFIRMATION [RM] Stat STREP SCRN A RAPID W CULT CONF [RM] Stat - Assessment/Plan Last 24 Hours: My Active Orders 11/24/18 20:12 Chest 2V [CR] Stat 11/24/18 20:27 RT Aerosol Therapy [RC] ASDIRECTED 11/24/18 20:31 CULTURE STREP A CONFIRMATION [RM] Stat STREP SCRN A RAPID W CULT CONF [RM] Stat
[2018-11-24] MEDS ORDERED: Ketorolac 60 MG/2 ML SDV IM ONE (20:12)
[2018-11-24] MEDS ORDERED: Albuterol/Ipratropium 3.0-0.5 MG/3 ML Neb Soln NEB ONE (20:27)
[2018-11-24] MEDS ORDERED: methylPREDNISolone Sodium Succinate 125 MG/2 ML SDV IM ONE (20:40)
[2018-11-24 20:58] LABS: CHLORIDE,CL 102 mmol/L (98-107); SODIUM,NA 139 mmol/L (136-148)
[2018-11-25 00:30] VITALS: BP 141/77
--- NOTE | 2018-11-26 11:49 | CR ---
EXAM DATE: 11/24/18 PATIENT'S AGE: 28 Patient: CHELSEY ALVAREZ Facility: [facility] Site Site : 1990 Study: XRay-Chest [id number]/[id number] 1:28:55 PM Ordering Physician: Jerome Israel Final Report: INDICATION: Cough TECHNIQUE: Chest 2 views COMPARISON: April 19, 2017 FINDINGS: Cardiovascular and mediastinum: Heart size and vasculature are normal in caliber and appearance. Lungs and pleural spaces: Lungs are clear except for stable benign granuloma in the left lower lobe. No sign of infiltrate or mass. No sign of pleural effusion. No pneumothorax. Bones and soft tissues: No significant findings. IMPRESSION: No acute findings and no significant changes from the prior exam. Dictated by Abel Escalante MD @ Nov 25 2018 1:58PM Signed by: Abel Escalante MD @11/25/2018 1:59:05 PM (Electronic Signature) Report Signed by Proxy. ISAIAS
== END 2018-11-24 21:34 | disposition home or self-care (01) ==
LOC: MW.ED 19:44
DX: J40 Bronchitis, not specified as acute or chronic (principal); I10 Essential (primary) hypertension
CPT/HCPCS: 36415; 71046; 80053; 85025; 87081; 87804; 87880; 94640; 96372; 99283; J1885; J2930; 99284; J7620-GY

== ENCOUNTER 2018-12-18 19:07 | Emergency (ER) | payer BC ==
--- NOTE | 2018-12-18 19:27 | EDM.PDOC ---
ED HPI GENERAL MEDICAL PROBLEM - General Chief Complaint: Respiratory Problem Stated Complaint: SORE THROAT, COUGH Time Seen by Provider: 12/18/18 19:26 Source of Information: Reports: Patient - History of Present Illness INITIAL COMMENTS - FREE TEXT/NARRATIVE: HISTORY AND PHYSICAL: History of present illness: [Patient presents with sore throat increasing in severity over the last week no current fever chills sweats no drooling muffled voice or trismus he does have difficulty with solid food no difficulty with liquid He was seen a couple of weeks prior and placed on a Z-Jean with resolution of his previous symptoms for about a week and sore throat has returned] Review of systems: As per history of present illness and below otherwise all systems reviewed and negative. Past medical history: As per history of present illness and as reviewed below otherwise noncontributory. Surgical history: As per history of present illness and as reviewed below otherwise noncontributory. Social history: No reported history of drug or alcohol abuse. Family history: As per history of present illness and as reviewed below otherwise noncontributory. Physical exam: HEENT: Atraumatic, normocephalic, pupils reactive, negative for conjunctival pallor or scleral icterus, mucous membranes moist, throat clear, neck supple, nontender, trachea midline. Moderate erythema no exudates tonsils 3+ some lymphadenopathy on the anterior chain on the right as well as slight effusion on the right ear no pain with movement of the auricle no mastoid tenderness tympanic membrane has a serous effusion with slight bulge the left is clear Lungs: Clear to auscultation, breath sounds equal bilaterally, chest nontender. Heart: S1S2, regular, negative for clicks, rubs, or JVD. Abdomen: Soft, nondistended, nontender. Negative for masses or hepatosplenomegaly. Negative for costovertebral tenderness. Pelvis: Stable nontender. Genitourinary: Deferred. Rectal: Deferred. Extremities: Atraumatic, negative for cords or calf pain. Neurovascular unremarkable. Neuro: Awake, alert, oriented. Cranial nerves II through XII unremarkable. Cerebellum unremarkable. Motor and sensory unremarkable throughout. Exam nonfocal. Diagnostics: [Strep/influenza ] Therapeutics: [Augmentin 875 per 125 #20 no refill ] Impression: [Pharyngitis/tonsillitis] Definitive disposition and diagnosis as appropriate pending reevaluation and review of above. throat Pain Score (Numeric/FACES): 6 - Related Data Allergies Allergy/AdvReac Type Severity Reaction Status Date / Time No Known Allergies Allergy Verified 12/18/18 19:33 Home Meds: Home Meds . [No Known Home Meds] 12/18/18 [History] Past Medical History - Past Health History Medical/Surgical History: Denies Medical/Surgical History HEENT History: Reports: Impaired Vision Cardiovascular History: Reports: High Cholesterol, Hypertension Respiratory History: Reports: None Gastrointestinal History: Reports: None Other Gastrointestinal History: right inguinal hernia Genitourinary History: Reports: None Musculoskeletal History: Reports: Fracture Neurological History: Reports: None Psychiatric History: Reports: None Endocrine/Metabolic History: Reports: None Hematologic History: Reports: None Immunologic History: Reports: None Oncologic (Cancer) History: Reports: None Dermatologic History: Reports: None - Infectious Disease History Infectious Disease History: Reports: Chicken Pox, Influenza - Past Surgical History HEENT Surgical History: Reports: None GI Surgical History: Reports: Hernia, Inguinal Musculoskeletal Surgical History: Reports: None Social & Family History - Family History Family Medical History: Noncontributory HEENT: Reports: Impaired Vision Cardiac: Reports: High Cholesterol, Hypertension Respiratory: Reports: Asthma OBGYN: Reports: Endocrine/Metabolic: Reports: Other (See Below) Other Endocrine/Metabolic Family History: diabetes - Caffeine Use Caffeine Use: Reports: Coffee, Soda ED ROS GENERAL - Review of Systems Review Of Systems: See Below ED EXAM, GENERAL - Physical Exam Exam: See Below Course - Vital Signs Last Recorded V/S: Last Vital Signs Temp 97.6 F 12/18/18 19:28 Pulse 87 12/18/18 19:28 Resp 18 12/18/18 19:28 BP 160/79 H 12/18/18 19:28 Pulse Ox 96 12/18/18 19:28 - Orders/Labs/Meds Orders: Active Orders 24 hr Category Date Time Status CULTURE STREP A CONFIRMATION [] Stat Lab 12/18/18 19:29 Results INFLUENZA A+B AG SCREEN [] Stat Lab 12/18/18 19:29 Received STREP SCRN A RAPID W CULT CONF [] Stat Lab 12/18/18 19:29 Results Departure - Departure Time of Disposition: 19:54 Disposition: Home, Self-Care 01 Condition: Good Clinical Impression: Pharyngotonsillitis - Discharge Information Referrals: PCP,None [Primary Care Provider] - Forms: ED Department Discharge Additional Instructions: The following information is given to patients seen in the emergency department who are being discharged to home. This information is to outline your options for follow-up care. We provide all patients seen in our emergency department with a follow-up referral. The need for follow-up, as well as the timing and circumstances, are variable depending upon the specifics of your emergency department visit. If you don't have a primary care physician on staff, we will provide you with a referral. We always advise you to contact your personal physician following an emergency department visit to inform them of the circumstance of the visit and for follow-up with them and/or the need for any referrals to a consulting specialist. The emergency department will also refer you to a specialist when appropriate. This referral assures that you have the opportunity for follow-up care with a specialist. All of these measure are taken in an effort to provide you with optimal care, which includes your follow-up. Under all circumstances we always encourage you to contact your private physician who remains a resource for coordinating your care. When calling for follow-up care, please make the office aware that this follow-up is from your recent emergency room visit. If for any reason you are refused follow-up, please contact the [facility] emergency department at and asked to speak to the emergency department charge nurse. - My Orders Last 24 Hours: My Active Orders 12/18/18 19:29 INFLUENZA A+B AG SCREEN [RM] Stat - Assessment/Plan Last 24 Hours: My Active Orders 12/18/18 19:29 INFLUENZA A+B AG SCREEN [RM] Stat
[2018-12-18 20:05] VITALS: BP 156/70
== END 2018-12-18 20:06 | disposition home or self-care (01) ==
LOC: MW.ED 19:07
DX: B00.2 Herpesviral gingivostomatitis and pharyngotonsillitis (principal); I10 Essential (primary) hypertension
CPT/HCPCS: 87081; 87804; 87880-QW; 99283